=== PATIENT | female | born 2005 | race Two or more races ===

== ENCOUNTER 2025-09-25 15:35 | Emergency (ER) | payer MEDICAID, SELFPAY ==
[2025-09-25] VITALS (12 sets, daily range): BP systolic 114–132; BP diastolic 58–93; PULSE 96–155; RESP 17–99; TEMP 36.6–37; O2SAT 97–100; BMI 23.4
--- NOTE | 2025-09-25 15:45 | XR_ITS ---
EXAMINATION: AP chest single view TECHNIQUE: AP portable semiupright chest single view Date and time: September 25, 2025, 1557 hours INDICATIONS: Shortness of breath chest pain today. FINDINGS: Normal heart size Lungs are clear. Osseous structures are intact IMPRESSION: No active disease
--- NOTE | 2025-09-25 15:45 | EKG_ITS ---
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
--- NOTE | 2025-09-25 15:47 | EDNOTE_ITS ---
ED SOB =RME/HPI General Chief Complaint: Shortness of Breath/Dyspnea Stated Complaint: SHORTNESS OF BREATH Time Seen by Provider: 09/25/25 15:47 Arrival date/time: 09/25/25 15:35 RME / HPI RME / HPI Narrative: See MDM for Dr. Hurst's HPI Documentation. Related Data Allergies Allergy/AdvReac Type Severity Reaction Status Date / Time No Known Allergies Allergy Verified 09/25/25 15:50 Review of Systems Review of Systems Systems Reviewed: All systems reviewed, normal except as documented Past Medical History Past Medical History RESPIRATORY: Positive Asthma Social History SMOKING STATUS: Never smoker ED Exam Narrative Physical exam: See MDM for Dr. Hurst's HPI Documentation. Course Quality Measures none Orders Category Date Time Status CT Screening NOW Care 09/25/25 17:02 Active EKG (ED ONLY) *Do not use* NOW Care 09/25/25 15:45 Completed Saline [Insert IV] NOW Care 09/25/25 15:[address] soft tissue neck chest w Stat Exams 09/25/25 17:02 Ordered EKG (ED Only) Stat Exams 09/25/25 15:45 Draft XR chest 1V portable Stat Exams 09/25/25 15:45 Completed ABG [Arterial Blood Gas] Stat Lab 09/25/25 15:46 Ordered BNP [B-Type Natriuretic Peptide] Stat Lab 09/25/25 15:55 Completed Bilirubin,Direct Stat Lab 09/25/25 15:55 Completed CBC Stat Lab 09/25/25 15:55 Completed CMP [Comprehensive Metabolic Panel] Stat Lab 09/25/25 15:55 Completed COVID-19 Antigen (In-House) Stat Lab 09/25/25 16:00 Completed D-Dimer Stat Lab 09/25/25 15:55 Completed HCG,Qualitative Serum Stat Lab 09/25/25 15:55 Completed Influenza A & B Rapid Panel Stat Lab 09/25/25 16:00 Completed Magnesium Stat Lab 09/25/25 15:55 Completed TSH [Thyroid Stimulating Hormone] Stat Lab 09/25/25 15:55 Completed Troponin I Stat Lab 09/25/25 15:55 Completed UA, C/S IF [Urinalysis, C/S if Indicated] Stat Lab 09/25/25 15:47 Ordered Albuterol/Ipratr Rt Lara [Duoneb Rt Lara] Med 09/25/25 15:44 Discontinued 6 ml INH X1 ONE DiphenhydrAMINE INJ [Benadryl Inj] Med 09/25/25 15:44 Discontinued 50 mg IVP X1 STA Levalbuterol Rt [Xopenex Rt Lara] Med 09/25/25 15:44 Discontinued 5 mg INH X1 ONE Magnesium Sulfate 2 GM Ivpb [Magnesium Sulfate Ivpb] Med 09/25/25 15:44 Discontinued 2 gm in 50 ml IV X1 MethylPREDNISolone.* [SoluMEDROL Inj] Med 09/25/25 15:44 Discontinued 250 mg IVP X1 ONE Metoprolol Tartrate [Lopressor] Med 09/25/25 17:20 Discontinued 25 mg PO X1 ONE Sodium Chloride 0.9% 1000 ml [Ns] 1,000 ml Med 09/25/25 17:03 Active IV 999 mls/hr Sodium Chloride Rt Lara 0.9% [NS Rt Lara 0.9%] Med 09/25/25 15:44 Active 3 ml INH PRN PRN Vital Signs Vital signs: Vital Signs Temperature 98.6 F 09/25/25 15:43 Pulse Rate 111 H 09/25/25 15:43 Respiratory Rate 19 09/25/25 15:43 Blood Pressure 129/93 H 09/25/25 15:43 Pulse Oximetry (%) 97 09/25/25 15:43 Oxygen Delivery Method Room Air 09/25/25 15:43 Shortness of Breath / Dyspnea MDM Narrative MDM Narrative:: This section includes all my notes and documentations, including HPI, PE, and ED course. Reginaldo Hurst MD HPI: 19-year-old female here with a couple day history of worsening shortness of breath. No fever. Had similar symptoms a couple weeks ago. Was intubated. No official diagnosis of asthma. No other complaints. ROS: All negative except as documented in HPI. Physical Exam: General: Alert and oriented. In respiratory distress with equivocal stridor. Eyes: Conjunctivae and lids clear. ENT: No nasal congestion. Pharynx normal. TM normal bilaterally. Neck: Supple. Heart: RRR. Lungs: In respiratory distress. Decreased air movement with severe rhonchi. Abdomen: Soft and nontender. Skin: Warm and dry. Neuro: Alert and oriented X 3. I reviewed all diagnostic test results: My interpretation of the EKG: NSR (99 bpm) with no ST-T changes. My interpretation of the chest x-ray is NAD. Blood tests unremarkable, including negative troponin/D-dimer/BNP. Covid/Influenza negative. Treatment here included: IVF DuoNeb X 2 Xopenex 5 mg neb treatment Solu-Medrol 250 mg IV Benadryl 50 mg IV MgSO4 2 gram IV Oral metoprolol 25 mg Some improvement noted. I discussed the case with our hospitalist.? About the presentation and exam and diagnostics and treatments here.? And need of further care in the hospital.? Recommend the neck/chest CT scan and reevaluation. At 6 PM on 09/25/2025, the care of the patient was transferred to Dr. Cedeno. Reginaldo Hurst MD Patient data External records reviewed:: None (no previous visits) Clinical information provided by:: patient and family Social determinants that could affect healthcare access:: none Patient has the following chronic illnesses:: Asthma How is presenting disease/condition affected by chronic disease/condition?: exacerbated by Evaluation data The following diagnostics were reviewed and interpreted by me:: lab results, radiology exam(s) and EKG tracing(s) (My interpretation of the EKG: NSR (99 bpm) with no ST-T changes. Reginaldo Hurst MD) Lab and/or radiology exams considered but not ordered:: none Interpretation Summary: I reviewed all diagnostic test results: My interpretation of the EKG: NSR (99 bpm) with no ST-T changes. My interpretation of the chest x-ray is NAD. Blood tests unremarkable, including negative troponin/D-dimer/BNP. Covid/Influenza negative. Medications / Prescriptions Medications or Prescriptions considered but not ordered:: none Medication administrations:: Medication Administration History Sodium Chloride (Ns) 1,000 mls @ 999 mls/hr IV .Q1H1M ONE Stop: 09/25/25 18:03 Sodium Chloride (Sodium Chloride Rt Lara 0.9% 3 Ml Nebu) 3 ml INH PRN PRN PRN Reason: SOLN Stop: 10/25/25 15:43 Discontinued Medications Albuterol/Ipratropium (Albuterol/Ipratropium (Duoneb) Rt Lara 3 Ml Nebu) 6 ml INH X1 ONE Stop: 09/25/25 15:45 Last Admin: 09/25/25 16:27 Dose: 6 ml Documented By: SHELBY Diphenhydramine HCl (Diphenhydramine Inj 50 Mg/Ml Vial) 50 mg IVP X1 STA Stop: 09/25/25 15:45 Last Admin: 09/25/25 16:17 Dose: 50 mg Documented By: CARMEN Magnesium Sulfate (Magnesium Sulfate Ivpb) 2 gm in 50 mls @ 50 mls/hr IV X1 ONE Stop: 09/25/25 16:43 Last Admin: 09/25/25 16:20 Dose: 50 mls/hr Documented By: CARMEN Levalbuterol HCl (Levalbuterol Rt 1.25 Mg/0.5 Ml Nebu) 5 mg INH X1 ONE Stop: 09/25/25 15:45 Last Admin: 09/25/25 16:28 Dose: 5 mg Documented By: SHELBY Methylprednisolone Sodium Succinate (Methylprednisolone Sod Succ 62.5 Mg/Ml 2ml Vial) 250 mg IVP X1 ONE Stop: 09/25/25 15:45 Last Admin: 09/25/25 16:19 Dose: 250 mg Documented By: CARMEN Metoprolol Tartrate (Metoprolol Tartrate 25 Mg Tablet) 25 mg PO X1 ONE Stop: 09/25/25 17:21 Treatment here included: IVF DuoNeb X 2 Xopenex 5 mg neb treatment Solu-Medrol 250 mg IV Benadryl 50 mg IV MgSO4 2 gram IV Oral metoprolol 25 mg Consultations Consultation(s) initiated? (list below): Yes Consultation #1 (Physician, Specialty, Details): I discussed the case with our hospitalist.? About the presentation and exam and diagnostics and treatments here.? And need of further care in the hospital.? Recommend the neck/chest CT scan and reevaluation. Diagnosis Shortness of Breath Differential Diagnosis: acute exacerbation of chronic obstructive airways disease, congestive heart failure, community acquired pneumonia, asthma with exacerbation and pulmonary embolism Most likely diagnosis given after review of the tests above:: I discussed the case with our hospitalist.? About the presentation and exam and diagnostics and treatments here.? And need of further care in the hospital.? Recommend the neck/chest CT scan and reevaluation. Admission Indicated Admission indicated?: not indicated Explain why admission is indicated or not indicated:: I discussed the case with our hospitalist.? About the presentation and exam and diagnostics and treatments here.? And need of further care in the hospital.? Recommend the neck/chest CT scan and reevaluation. Admission Request Was there a request for admission?: No Disposition Plan Disposition Plan: other (specify) (At 6 PM on 09/25/2025, the care of the patient was transferred to Dr. Cedeno.) Discharge Plan Prescriptions/Referrals Referrals: Robin Reyes MD [Primary Care Provider, Family Practice] - In 1 week Problem List Clinical Impression: Shortness of breath Patient/Caregiver Discharge Instructions Print Language: Divehi
[2025-09-25 16:08] LABS: Basophils # (Auto) 0.2 Thou/mm3 (0.0-0.2); Basophils % (Auto) 2 % (0-2.5); Eosinophils # (Auto) 0.1 Thou/mm3 (0.0-0.5); Eosinophils % (Auto) 1 % (0-10); Hematocrit 41.7 % (36.0-46.0); Hemoglobin 13.1 g/dL (12.0-16.0); Immature Granulocytes Auto 0.29 Thou/mm3 (0.00-0.00); Lymphocytes # (Auto) 2.2 Thou/mm3 (1.0-5.0); Lymphocytes % (Auto) 24 % (10-50); Mean Corpuscular HGB Conc 31.4 g/dl (31.0-37.0); Mean Corpuscular Hemoglobin 30.5 pg (25.0-35.0); Mean Corpuscular Volume 97 fL (80-100); Monocytes # (Auto) 1.1 Thou/mm3 (0.0-0.8); Monocytes % (Auto) 11 % (0-12); Neutrophils # (Auto) 5.4 Thou/mm3 (1.8-7.7); Neutrophils % (Auto) 59 % (37-80); Nucleated Red Blood Cell # 0.00 Thou/mm3 (0.00-0.00); Nucleated Red Blood Cell % 0 /100 WBC (0); Platelet Count 152 Thou/mm3 (140-440); RDW Standard Deviation 51.7 fL (36.4-46.3); Red Blood Count 4.29 Miln/mm3 (4.00-5.20); White Blood Count 9.3 Thou/mm3 (4.5-11.0)
[2025-09-25] MEDS: MethylPREDNISolone SOD SUCC 62.5 MG/ML 2ML VIAL 250 MG IVP (16:19)
[2025-09-25] MEDS: Magnesium Sulfate 2 GM Ivpb 2 GM/50 ML BAG IV (16:20)
[2025-09-25] MEDS: ALBUTEROL/IPRATROPIUM (Duoneb) RT SOL 3 ML NEBU 6 ML INH (16:27)
[2025-09-25] MEDS: LEVALBUTEROL RT 1.25 MG/0.5 ML NEBU 5 MG INH (16:28)
[2025-09-25 16:33] LABS: D-Dimer < 250 ng/mL (<600)
[2025-09-25 16:40] LABS: B-Type Natriuretic Peptide < 20 pg/mL (0-100)
[2025-09-25 16:43] LABS: Alanine Aminotransferase < 7 U/L (10-49); Albumin, Serum 4.6 gm/dL (3.5-5.0); Albumin/Globulin Ratio 1.6 (1.2-2.2); Alkaline Phosphatase 105 U/L (46-116); Anion Gap 11 (7-16); Aspartate Amino Transferase 15 U/L (0-34); BUN/Creatinine Ratio 23 Ratio (12-20); Bilirubin,Direct 0.1 mg/dL (0.0-0.3); Bilirubin,Total 0.3 mg/dL (0.3-1.2); Blood Urea Nitrogen 16 mg/dL (9-23); Calcium 8.9 mg/dL (8.3-10.6); Calcium (Corrected) 8.9 mg/dL (8.5-10.1); Carbon Dioxide 26.8 mMol/L (20.0-31.0); Chloride 105 mMol/L (98-107); Creatinine (Component) 0.7 mg/dL (0.6-1.3); Estimated Creatinine Clearance 92.9 mL/min (>60); Globulin 2.8 gm/dL (2.3-3.5); Glucose 121 mg/dL (74-106); Magnesium 1.8 mg/dL (1.6-2.6); Osmolality,Calculated 287 (275-295); Potassium 3.8 mMol/L (3.4-5.1); Sodium 143 mMol/L (136-145); Thyroid Stimulating Hormone 2.10 uIU/mL (0.55-4.78); Total Protein 7.4 gm/dL (5.7-8.2); Troponin I < 0.002 ng/mL (0.0-0.045); eGFR > 60 See Note
[2025-09-25 16:44] LABS: COVID-19 Antigen (In-House) Negative (Negative); Influenza A Ag Negative; Influenza B Ag Negative
[2025-09-25 16:44] LABS: HCG,Qualitative Serum Negative
--- NOTE | 2025-09-25 17:02 | XR_ITS ---
Examination: CT soft tissue neck chest with intravenous contrast, 2-D sagittal reconstructions. 2-D coronal reconstructions. 3-D reconstructions. Date and time of exam: September 25, 2025, 1803 hours INDICATIONS: History hypoxic respiratory failure and intubation August 2025, shortness of breath bronchospasm beginning 3 days ago CTDI: vol (mGy): 7.82 DLP: (mGycm): 329 Technique: Multiple 1.25 mm axial sections of the 60 cc Isovue-370 have been obtained. 2-D sagittal and coronal reconstructions have been obtained. 3-D reconstructions have been obtained. Low dose protocols were performed. One or more of the following dose reduction techniques were used; automated exposure control, adjustment of the mA and/or KV according to patient size, use of iterative reconstruction technique. 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, sagittal image 76, narrowing of the diameter of the trachea by approximately 70% No thoracic aortic aneurysmal dilatation Pulmonary artery segments are not enlarged No mediastinal lymphadenopathy No pneumonia, pulmonary edema, pleural disease or pulmonary mass lesions No visualized liver or splenic lesion no gallstones noted No pancreatic mass IMPRESSION: No nasopharyngeal or oropharyngeal mass Negative for pathologic cervical lymphadenopathy Normal larynx Normal esophagus 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
[2025-09-25] MEDS: SODIUM CHLORIDE 0.9% 1000 ML 1,000 ML 999 ML IV (17:24)
[2025-09-25] MEDS: METOPROLOL TARTRATE 25 MG TABLET PO (17:29)
[2025-09-25 17:43] LABS: Collection Type, Urine Clean Catch
[2025-09-25 17:48] LABS: Bilirubin,Urine Negative (Negative); Blood,Urine Negative (Negative); Clarity,Urine Clear (Clear/Hazy); Color,Urine Colorless (Lt Yel-Yel); Culture Indicated,Urine Not Indicated; Glucose, Urine Negative (Negative); Ketones,Urine Negative (Negative); Leukocyte Esterase,Urine Negative (Negative); Nitrite,Urine Negative (Negative); PH,Urine 6.5 (5.0-7.0); Protein,Urine Negative (Neg - Trace); RBC,Urine < 1 /hpf (0-3); Specific Gravity,Urine 1.011 (1.001-1.035); Squamous Epithelial Cell,Urine 1 /hpf (0-5); Urobilinogen,Urine Negative mg/dL (0.0-1.0); WBC,Urine < 1 /hpf (0-5)
--- NOTE | 2025-09-25 18:23 | EVENTNT_ITS ---
<Statement entered by Donaldo Bonilla MD - 09/25/25 20:16> I have seen and examined patient at bedside. I agree on the assessment and plan of this note. - Patient's plan and care discussed with my attending, Dr. Ab Bonilla MD Internal Medicine PGY-3 Documentation for date of: 09/25/25 Event Note Event Note: Internal Medicine Consult Note ? Event Summary Internal Medicine was consulted for possible admission of a 19-year-old female with no significant past medical history, but psychiatry, bipolar disorder who presented to the ED today with progressive shortness of breath. The patient reports 3 days of dyspnea, with marked worsening over the last 24 hours prompting her ED visit. Symptoms are associated with difficulty breathing, tearing of the eyes, ringing in the ears, and excessive drooling. She denies fever, chills, sick contacts, postnasal drip, or difficulty swallowing. The patient reports a recent hospitalization last month for a manic episode triggered after using a vape, admitted to psychiatry during which she states she was intubated and heavily sedated and later self-extubated. She was discharged and prescribe aripiprazole and valproate for severe anxiety. She also reports no history of COPD and asthma. She is unsure of any recent dust or chemical exposure and is unsure of immunization status. She denies smoking and allergies. Physical Exam: * General: Increased work of breathing, biphasic stridor, able to finish 1 sentence with a single breath. * CVS: Tachycardic. * Respiratory: Audible stridor even prior to auscultation. * HEENT: Erythematous sclera, mildly enlarged and erythematous tonsils, no palpable lymphadenopathy. ED Course: Patient received methylprednisolone, magnesium sulfate, insulin, levalbuterol, and 1 L NS. Chest X-ray shows findings concerning for a possible steeple sign. Neck soft tissue CT scan showed 70% tracheal stenosis extending from C6-T1. Assessment / Differential Diagnosis: Given the patient?s clinical presentation?tripod posture, drooling, stridor, muffled voice, tonsillar erythema, and respiratory distress?differential diagnoses include: * Subglottic stenosis * Tracheal stenosis * Vocal cord trauma (history of prior intubation/self-extubation) * Epiglottitis * Peritonsillar abscess * Laryngitis or other upper airway obstruction Plan: This * Patient may require ENT evaluation if significant airway pathology is identified, which are not available at [facility]. * Will sign out to night team to follow CT results and determine need for transfer or admission if imaging is negative but symptoms persist. Patient assessed under supervision of attending physician Dr.K Berger and senior resident Dr. Bonilla PGY-3 Margie Quinones MD PGY-1, Internal Medicine Please note: this document was transcribed using voice recognition technology; minor inaccuracies may be present. I, Shikha Berger, DO, attest that I was physically present for the bray portions of the service and evaluated the patient with the resident and I reviewed and discussed the case with the resident and agree with the resident's findings and plans of care as documented above Patient was seen and evaluated in ER2 after she had received metoprolol for tachycardia, breathing treatments of levalbuterol and dunoebs, magnesium, solumedrol and benardyl. She is sitting up in rsan juan, resting comfortably and in no acute respiratory distress. However, patient has audible inspiratory and e xpiratory stridor noted while speaking. She states she was intubated at [facility] about 1 month ago and self-extubated. She has had occasional episodes of shortness of breath that has progressively gotten worse in the past 3 days. She admits that her voice has been hoarse since the intubation. She admits to some productive sputum, but denies cough, fevers or chills. She endorses dyspnea on exertion and denies any known allergies. She had also reportedly had pooling of her drool, shortness of breath sitting in tripod position with conjunctival irritation and ringing of her ears on initial presentation. Patient does not have any swelling of her lips or tongue. Due to concern for vocal cord dysfunction versus tracheal stenosis versus epiglotitis or abscess causing obstruction, CT neck of soft tissue was requested from ED. CXR, although not noted on read, appears to have narrowing of trachea. Image has been taken and appears to have steeple sign on the CT image that has been uploaded. Will await final official read as patient may need transfer for ENT or interventional pulmonology for further evaluation. Case and recommendations wer further discussed with ED physician Dr. Cedeno after my evaluation.
--- NOTE | 2025-09-25 18:23 | EDNOTE_ITS ---
ED General RME/HPI General Chief complaint: Shortness of Breath/Dyspnea Stated complaint: SHORTNESS OF BREATH Time Seen by Provider: 09/25/25 15:47 Arrival date/time: 09/25/25 15:35 RME / HPI RME / HPI narrative: See [facility] for Dr. Hurst's HPI Documentation. Related Data Previous Rx's ?Medication ?Instructions ?Recorded albuterol sulfate 90 mcg/actuation 1 inh inhalation QI D PRN shortness 09/25/25 breath activated powder inhaler of breath #1 ea (ProAir RespiClick) prednisone 20 mg tablet 40 mg PO QDAY 5 days #10 tab s 09/26/25 Allergies Allergy/AdvReac Type Severity Reaction Status Date / Time No Known Allergies Allergy Verified 09/25/25 15:50 ED Exam Narrative Physical exam: Physical Exam: GENERAL: Awake, answering questions appropriately, appears in mild respiratory distress HEENT: NC/AT. Moist mucosa. PERRLA/EOMI. CARDIO: Heart RRR, no obvious murmurs, no JVD. PULM: No coughing but appears visibly short of breath with some mouth breathing but saturating 99 on minimal supplemental oxygen. Lungs CTA B/L. GI: Abdomen soft, NT/ND, +BS. SKIN/MSK/EXT: No wounds/discoloration/rashes/edema/amputations. +Pedal pulses present B/L. NEURO: Oriented x3, Moves extremities x4, no focal neurologic deficits noted Course Quality Measures none Orders Category Date Time Status CT Screening NOW Care 09/25/25 17:02 Active EKG (ED ONLY) *Do not use* NOW Care 09/25/25 15:45 Completed NPO NOW Care 09/25/25 20:11 Active Saline [Insert IV] NOW Care 09/25/25 15:43 Active Diet NPO (NOW) Diet 09/25/25 20:[address] soft tissue neck chest w Stat Exams 09/25/25 17:02 Completed EKG (ED Only) Stat Exams 09/25/25 15:45 Draft XR chest 1V portable Stat Exams 09/25/25 15:45 Completed ABG [Arterial Blood Gas] Stat Lab 09/25/25 15:46 Stop Req BNP [B-Type Natriuretic Peptide] Stat Lab 09/25/25 15:55 Completed Bilirubin,Direct Stat Lab 09/25/25 15:55 Completed CBC Stat Lab 09/25/25 15:55 Completed CMP [Comprehensive Metabolic Panel] Stat Lab 09/25/25 15:55 Completed COVID-19 Antigen (In-House) Stat Lab 09/25/25 16:00 Completed D-Dimer Stat Lab 09/25/25 15:55 Completed HCG,Qualitative Serum Stat Lab 09/25/25 15:55 Completed Influenza A & B Rapid Panel Stat Lab 09/25/25 16:00 Completed Magnesium Stat Lab 09/25/25 15:55 Completed TSH [Thyroid Stimulating Hormone] Stat Lab 09/25/25 15:55 Completed Troponin I Stat Lab 09/25/25 15:55 Completed UA, C/S IF [Urinalysis, C/S if Indicated] Stat Lab 09/25/25 17:34 Completed VBG [Venous Blood Gas] Stat Lab 09/25/25 19:39 Completed Albuterol/Ipratr Rt Lara [Duoneb Rt Lara] Med 09/25/25 15:44 Discontinued 6 ml INH X1 ONE DiphenhydrAMINE INJ [Benadryl Inj] Med 09/25/25 15:44 Discontinued 50 mg IVP X1 STA Levalbuterol Rt [Xopenex Rt Lara] Med 09/25/25 15:44 Discontinued 5 mg INH X1 ONE Magnesium Sulfate 2 GM Ivpb [Magnesium Sulfate Ivpb] Med 09/25/25 15:44 Discontinued 2 gm in 50 ml IV X1 MethylPREDNISolone.* [SoluMEDROL Inj] Med 09/25/25 15:44 Discontinued 250 mg IVP X1 ONE Metoprolol Tartrate [Lopressor] Med 09/25/25 17:20 Discontinued 25 mg PO X1 ONE Sodium Chloride 0.9% 1000 ml [Ns] 1,000 ml Med 09/25/25 17:03 Discontinued IV 999 mls/hr Sodium Chloride Rt Lara 0.9% [NS Rt Lara 0.9%] Med 09/25/25 15:44 Active 3 ml INH PRN PRN dexAMETHasone INJ [Decadron Inj] Med 09/25/25 21:27 Discontinued 10 mg IVP X1 ONE dexAMETHasone INJ [Decadron Inj] Med 09/26/25 04:30 Discontinued 10 mg IVP X1 ONE Oxygen Delivery NOW RT 12/06/25 19:02 Active Vital Signs Vital signs: Vital Signs Temperature 98.6 F 09/25/25 15:43 Pulse Rate 111 H 09/25/25 15:43 Respiratory Rate 19 09/25/25 15:43 Blood Pressure 129/93 H 09/25/25 15:43 Pulse Oximetry (%) 97 09/25/25 15:43 Oxygen Delivery Method Room Air 09/25/25 15:43 Discharge Plan Plan Patient Disposition: HOME (Self Care) Discharge Disposition comment: Please take prednisone 40 mg tablet by mouth once a day for 5 days Please take albuterol inhaler 1 puff 4 times a day as needed for acute shortness of breath Please follow-up with your primary care provider within 3 days and asked to be referred to ear nose throat specialist Patient condition on transfer: Stable Prescriptions/Referrals Prescriptions/Med Rec: New ProAir RespiClick 90 mcg/actuation aerosol powdr breath activated 1 inh inhalation QID PRN (Reason: shortness of breath) Qty: 1 0RF prednisone 20 mg tablet 40 mg PO QDAY 5 Days Qty: 10 0RF Taper: Prednisone Taper 40 mg DAILY for 5 Days and 0 Hour Referrals: Robin Reyes MD [Primary Care Provider, Family Practice] - In 1 week Problem List Clinical Impression: Shortness of breath Patient/Caregiver Discharge Instructions Print Language: Estonian Stand Alone Forms: Sheila Award Info., Patient Portal Info Letter MDM Narrative MDM hospital course (for use when minimal MDM required): HPI: 19-year-old female with past medical history of psychiatric condition on valproic acid and aripiprazole (started about 1 week ago at [facility]) presenting to the ED on 09/25 with increased work of breathing and worsening shortness of breath. Patient states that for about the past week or so she has been developing progressively worsening shortness of breath which acutely worsened this afternoon. Patient states that she recently started new medications but otherwise denies having any sick contacts, has not been bedbound. Of note, patient had an episode of difficulty protecting her airway about 1 month ago at [facility] during her hospitalization which required intubation. She apparently self extubated during that admission and had been discharged after she was seen at the mental facility as above. On examination, please refer to the physical exam note above; patient initially presented mildly hypertensive 129/93, tachycardic with a heart rate of 111, respiratory rate fluctuating in the low 20s to low 30s, afebrile saturating 97 on room air. Laboratory findings largely unremarkable, VBG shows a pH of 7.39, pCO2 of 34 and CMP is largely unremarkable other than magnesium 1.8, urinalysis not show any signs of infection. Chest x-ray does not show any active disease, EKG is sinus rhythm and soft tissue neck shows a tracheal stenosis extending at the C6-T1 area with 70% narrowing noted.; Otherwise normal larynx, normal esophagus and no cervical lymphadenopathy noted. Patient has since received multiple breathing treatments including DuoNeb 6 mL, Xopenex 5 mg, diphenhydramine 50 mg IV x 1, magnesium 2 g replacement, IV methylprednisolone 2050 mg, metoprolol tartrate 25 mg p.o. for the sinus tachycardia by previous ED provider. 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 Weeks who has reviewed the patient's history, laboratory findings and imaging findings and states that the patient's tracheal stenosis does not need emergent surgery or balloon dilatation at this time. He states that due to the patient being intubated for less than 7 days at [facility] in addition to her history of acutely worsened shortness of breath likely from some sort of allergen or instigating factor, the likelihood of acutely worsening or narrowing of tracheal stenosis is unlikely. He recommends that the patient receive IV dexamethasone 10 mg every 8 hours for maximum of 3 doses. He also states that the patient is safe to get discharged after receiving the IV dexamethasone with albuterol inhaler as needed for shortness of breath and a course of steroids. He also offered to follow the patient at their ENT clinic. Gave IV dexamethasone 10 mg x2 with resolution of her respiratory distress Plan: Patient appears stable, we will discharge with albuterol inhaler and prednisone 40 mg for 5 days Will recommend that the patient see their primary care physician within the next 5 days for close monitoring and referral to an ENT specialist, Dr. Weeks Patient seen and assessed with attending Dr. Pao Saavedra, DO PGY-2 Internal Medicine - GME Medication Administration(s) Medication Administration History Sodium Chloride (Sodium Chloride Rt Lara 0.9% 3 Ml Nebu) 3 ml INH PRN PRN PRN Reason: SOLN Stop: 10/25/25 15:43 Discontinued Medications Albuterol/Ipratropium (Albuterol/Ipratropium (Duoneb) Rt Lara 3 Ml Nebu) 6 ml INH X1 ONE Stop: 09/25/25 15:45 Last Admin: 09/25/25 16:27 Dose: 6 ml Documented By: SHELBY Dexamethasone Sodium Phosphate (Dexamethasone Sod Phos Inj 10 Mg/Ml Vial) 10 mg IVP X1 ONE Stop: 09/25/25 21:28 Last Admin: 09/25/25 21:56 Dose: 10 mg Documented By: EB Dexamethasone Sodium Phosphate (Dexamethasone Sod Phos Inj 10 Mg/Ml Vial) 10 mg IVP X1 ONE Stop: 09/26/25 04:31 Last Admin: 09/26/25 05:00 Dose: 10 mg Documented By: NEETU Diphenhydramine HCl (Diphenhydramine Inj 50 Mg/Ml Vial) 50 mg IVP X1 STA Stop: 09/25/25 15:45 Last Admin: 09/25/25 16:17 Dose: 50 mg Documented By: CARMEN Magnesium Sulfate (Magnesium Sulfate Ivpb) 2 gm in 50 mls @ 50 mls/hr IV X1 ONE Stop: 09/25/25 16:43 Last Infusion: 09/25/25 18:55 Dose: Infused Documented By: Admin: 09/25/25 16:20 Dose: 50 mls/hr Documented By: CARMEN Sodium Chloride (Ns) 1,000 mls @ 999 mls/hr IV .Q1H1M ONE Stop: 09/25/25 18:03 Last Infusion: 09/25/25 19:21 Dose: Infused Documented By: Admin: 09/25/25 17:24 Dose: 999 mls/hr Documented By: CARMEN Levalbuterol HCl (Levalbuterol Rt 1.25 Mg/0.5 Ml Nebu) 5 mg INH X1 ONE Stop: 09/25/25 15:45 Last Admin: 09/25/25 16:28 Dose: 5 mg Documented By: SHELBY Methylprednisolone Sodium Succinate (Methylprednisolone Sod Succ 62.5 Mg/Ml 2ml Vial) 250 mg IVP X1 ONE Stop: 09/25/25 15:45 Last Admin: 09/25/25 16:19 Dose: 250 mg Documented By: CARMEN Metoprolol Tartrate (Metoprolol Tartrate 25 Mg Tablet) 25 mg PO X1 ONE Stop: 09/25/25 17:21 Last Admin: 09/25/25 17:29 Dose: 25 mg Documented By: CARMEN
--- NOTE | 2025-09-25 19:45 | PC.NURSE ---
Pt received from Day shift Roni. Pt in bed tachycardia at 115, oxygen sat at 98, RR 27 . Pt stated she feels better. Auscultation of throat and chest presents NO stridor at this time. RT placing Pt on mask high flow at 6liters due to CT showing 70% stenosis of airway. Pt is to be transferred out for ENT specialty higher level of care.
[2025-09-25 19:50] LABS: Base Excess, Venous -4 (-3-3); O2 Saturation, Venous 97 % (96-97); PCO2, Venous 34 mmHg (36-56); PO2, Venous 80 mmHg (15-58); pH, Venous 7.39 (7.33-7.66)
--- NOTE | 2025-09-25 23:21 | PC.NURSE ---
1936 [facility] CONTACTED DO NOT HAVE ENT SERVICES. 1950 [facility] CONTACTED [facility] SENT IMAGES PUSHED. 2139 [facility] RETURNED CALL SPEAKING WITH DR RG. DR ALVARADO STATES PT CAN BE SEEN OUTPATIENT. 2151 [facility] CONTACTED [facility] SENT. [facility] RETURNED CALL DECLINED PT STATES PT REQUIRES TIERTIARY CARE, DR NOWAK. 2255 CONTACTED [facility] PER DR SANCHEZ WOULD LIKE TO SPEAK WITH DR ALVARADO.
[2025-09-26 02:12] VITALS: BP 118/69; PULSE 92; RESP 18; TEMP 36.6; O2SAT 98
[2025-09-26 04:23] VITALS: BP 111/68; PULSE 99; RESP 20; TEMP 36.7; O2SAT 99
[2025-09-26 05:55] VITALS: BP 113/76; PULSE 94; RESP 16; TEMP 36.6; O2SAT 99
== END 2025-09-26 05:56 | disposition home or self-care (01) ==
PROVIDERS: Emergency Medicine; Emergency Provider Emergency Medicine; PCP Family Medicine
DX: R06.02 Shortness of breath (principal); R07.9 Chest pain, unspecified; J39.8 Other specified diseases of upper respiratory tract; I10 Essential (primary) hypertension
CPT/HCPCS: 36415; 36600; 70491; 71045; 71260; 80053; 81001; 82248; 82803; 83735; 83880; 84443; 84484; 84703; 85025; 85379; 87502; 87811; 93005; 94640; 96365; 96366; 96375; 96376; 99285; A4649; A9270; J1100; J1200; J2919; J3475; J7030; J7612; Q9967